=== PATIENT | female | born 1980 | race Caucasian/White ===

== ENCOUNTER 2021-05-12 07:39 | Inpatient (IN) | payer OTHER ==
[~2021-05-12] VITALS: Ht 162.6 cm; Wt 74.0 kg
[~2021-05-12 07:39] MED LIST: Bactrim Ds Tab1 EACH PO; CEPH500 PO; HIBICLENS120 ML EXT; HYDACE5 PO; IBUP600 PO; Keflex500 MG PO; MUPI2TC TOP; OMEP20ER PO; OXYACE5T PO; PENVK250 PO; PENVK500 PO; PROM25 PO; PROZAC; RXHYDACE PO; TRAM50 PO; ZYPREXA
[2021-05-12 08:25] LABS: BASOPHILS ABSOLUTE AUTO 0.05 K/mm3 (0.00-0.23); BASOPHILS PERCENT AUTO 0 % (0-2); EOSINOPHILS ABSOLUTE AUTO 0.04 K/mm3 (0.00-0.68); EOSINOPHILS PERCENT AUTO 0 % (0-6); Hematocrit 49.7 % (33.0-51.0); Hemoglobin 16.3 g/dL (11.5-16.0); IMMATURE GRAN ABSOLUTE AUTO 0.08 K/mm3 (0.00-0.10); IMMATURE GRAN PERCENT AUTO 0 % (0-1); LYMPHOCYTES ABSOLUTE AUTO 1.88 K/mm3 (0.84-5.20); LYMPHOCYTES PERCENT AUTO 9 % (21-46); MONOCYTES ABSOLUTE AUTO 1.95 K/mm3 (0.16-1.47); MONOCYTES PERCENT AUTO 10 % (4-13); Mean Corpuscular HGB Conc 32.8 g/dL (31.5-36.5); Mean Corpuscular Volume 91 fL (80-100); Mean Platelet Volume 9.5 fL (9.1-12.4); NEUTROPHILS ABSOLUTE AUTO 16.63 K/mm3 (1.96-9.15); NEUTROPHILS PERCENT AUTO 81 % (41-73); Platelet Count 354 K/mm3 (150-400); RDW Coefficient Variation 13.1 % (11.7-14.2); RDW Standard Deviation 43.8 fL (35.1-46.3); Red Blood Cell Count 5.44 M/mm3 (3.80-5.20); White Blood Cell Count 20.63 K/mm3 (4.00-11.30)
[2021-05-12 08:42] LABS: Alanine Aminotransfer (ALT/SGP 258 U/L (12-78); Albumin, Blood 4.3 g/dL (3.4-5.0); Albumin/Globulin Ratio 0.9 (0.8-1.8); Alk Phos 190 U/L (50-136); Anion Gap 6 mmol/L (6-16); Aspartate Aminotrans (AST/SGOT 51 U/L (12-37); Bilirubin, Total 0.7 mg/dL (0.1-1.0); Blood Urea Nitrogen 19 mg/dL (8-24); Bun/Creatinine Ratio 22.5 (12.0-20.0); CO2, Blood 30 mmol/L (21-32); Calcium, Blood 9.9 mg/dL (8.5-10.1); Chloride, Blood 99 mmol/L (98-108); Creatinine, Blood 0.84 mg/dL (0.40-1.00); Glomerular Filtration Rate >60 (60-); Glucose, Blood 138 mg/dL (70-99); Potassium, Blood 4.3 mmol/L (3.5-5.5); Sodium, Blood 135 mmol/L (136-145); Total Protein, Blood 9.3 g/dL (6.4-8.2)
[2021-05-12 10:02] LABS: Source, Urine Clean Catch
[2021-05-12 10:07] LABS: Appearance, Urine Clear (Clear); Bilirubin, Urine Neg (Neg); Blood, Urine 3+ (Neg); Color, Urine Yellow (P-Yellow); Glucose Qualitative, Urine Neg (Neg); Ketones, Urine 3+ (Neg); Leukocyte Esterase, Urine 1+ (Neg); Nitrite, Urine Neg (Neg); Protein, Urine 2+ (Neg); Urobilinogen, Urine NORM (Normal)
[2021-05-12 10:12] LABS: Influenza A, PCR NEGATIVE (NEGATIVE); Influenza B, PCR NEGATIVE (NEGATIVE); Resp Syncytial Virus, PCR NEGATIVE (NEGATIVE); SARS-Cov-2 (COVID-19) PCR, MMC NEGATIVE (NEGATIVE)
[2021-05-12 10:32] LABS: U Amphetamine Screen DETECTED; U Barbituate Screen Not Detected; U Benzodiazapine Screen Not Detected; U Buprenorphine Screen Not Detected; U Cannabinoids Screen Not Detected; U Cocaine Screen Not Detected; U Methadone Screen Not Detected; U Methamphetamine Screen DETECTED; U Opiates Screen Not Detected; U Oxycodone Screen Not Detected; U Phencyclidine Screen Not Detected; U Propoxyphene Screen Not Detected
[2021-05-12 10:57] LABS: Amorphous Heavy (0-Heavy); Bacteria Mod /hpf; Squamous Epithelial Cells Few /hpf (Few)
[2021-05-12 10:58] LABS: Hyaline Casts 0-2 /lpf (0-2)
[2021-05-12 11:12] LABS: Mucus Light (0-Heavy)
--- NOTE | 2021-05-12 18:05 | NUR ---
SHIFT SUMMARY PT IS SLEEPING IN BED. SINCE SHE ARRIVED ON THE FLOORS SHE HAS NOT HAD ANY VOMITING AND ONLY SOME NAUSEA, SHE HAS HELD DOWN CLEAR LIQUIDS FOR THE LAST [address] PATTON VISITED THE PT AND EXPLAINED THE LAP CHOLY TO HER AND SAID THE SURGERY WOULD MOST LIKELY BE TOMORROW MORNING AND THAT SHE COULD DISCHARGE HOME LATER THAT DAY. SHE WAS AGREEABLE TO THAT. SHE DENIES PAIN AND IS COMFORTABLE. PT WILL BE NPO AFTER MIDNIGHT. WILL CONTINUE TO MONITOR.
[2021-05-13 04:27] LABS: BASOPHILS ABSOLUTE AUTO 0.04 K/mm3 (0.00-0.23); BASOPHILS PERCENT AUTO 0 % (0-2); EOSINOPHILS PERCENT AUTO 2 % (0-6); Hematocrit 43.2 % (33.0-51.0); Hemoglobin 14.7 g/dL (11.5-16.0); IMMATURE GRAN ABSOLUTE AUTO 0.05 K/mm3 (0.00-0.10); IMMATURE GRAN PERCENT AUTO 0 % (0-1); LYMPHOCYTES ABSOLUTE AUTO 2.76 K/mm3 (0.84-5.20); LYMPHOCYTES PERCENT AUTO 20 % (21-46); MONOCYTES ABSOLUTE AUTO 1.33 K/mm3 (0.16-1.47); MONOCYTES PERCENT AUTO 10 % (4-13); Mean Corpuscular HGB 31.1 pg (26.0-34.0); Mean Corpuscular Volume 92 fL (80-100); Mean Platelet Volume 9.7 fL (9.1-12.4); NEUTROPHILS ABSOLUTE AUTO 9.11 K/mm3 (1.96-9.15); NEUTROPHILS PERCENT AUTO 67 % (41-73); Platelet Count 247 K/mm3 (150-400); RDW Coefficient Variation 12.7 % (11.7-14.2); RDW Standard Deviation 43.1 fL (35.1-46.3); Red Blood Cell Count 4.72 M/mm3 (3.80-5.20); White Blood Cell Count 13.59 K/mm3 (4.00-11.30)
[2021-05-13 05:28] LABS: Alanine Aminotransfer (ALT/SGP 158 U/L (12-78); Albumin, Blood 3.2 g/dL (3.4-5.0); Alk Phos 126 U/L (50-136); Anion Gap 6 mmol/L (6-16); Aspartate Aminotrans (AST/SGOT 33 U/L (12-37); Bilirubin, Total 0.7 mg/dL (0.1-1.0); Blood Urea Nitrogen 8 mg/dL (8-24); Bun/Creatinine Ratio 12.6 (12.0-20.0); CO2, Blood 26 mmol/L (21-32); Calcium, Blood 8.6 mg/dL (8.5-10.1); Chloride, Blood 105 mmol/L (98-108); Creatinine, Blood 0.63 mg/dL (0.40-1.00); Glomerular Filtration Rate >60 (60-); Glucose, Blood 108 mg/dL (70-99); Sodium, Blood 137 mmol/L (136-145)
[2021-05-13 05:30] LABS: Albumin/Globulin Ratio 0.8 (0.8-1.8); Globulin, Blood 3.8 g/dL (2.2-4.0)
--- NOTE | 2021-05-13 06:20 | NUR ---
SHIFT SUMMARY: PATIENT REPORTED NAUSEA X1, ZOFRAN WAS GIVEN WITH GOOD EFFECT. IVF INFUSING PER MD ORDER. PATIENT HAS BEEN NPO SINCE [place]. NO REPORTS OF PAIN. LOW GRADE TEMP. IS PERSISTANT.
--- NOTE | 2021-05-13 10:14 | NUR ---
THE PATIENT WAS BROUGHT TO DAY SURGERY FOR HER PROCEDURE.
--- NOTE | 2021-05-13 16:26 | NUR ---
SHIFT SUMMARY A/OX4, IND TO BATHROOM. PT RETURNED FROM OR APPROX 1520. DENIES PAIN OR NAUSEA. TY DRAIN TO THE RUQ PATENT WITH SANGINOUS OUTPUT. PLAN IS TO TRANSFER PT TO [facility] FOR ERCP WHEN A BED IS AVAILABLE. VSS, BED IN LOWEST POSITION WITH CALL LIGHT IN REACH. WILL CONTINUE TO MONITOR AND REPORT TO ONCOMING RN.
--- NOTE | 2021-05-14 07:24 | NUR ---
SHIFT SUMMARY: PATIENT HAS GOOD PAIN CONTROL WITH PO OXYCODONE X2, ZOFRAN WAS GIVEN WITH OXYCODONE TO PREVENT NAUSEA. PATIENT REPORTED THIS SIDE EFFECT FROM NARCOTICS. IV DILAUDID WAS GIVEN X1 FOR BREAK THROUGH PAIN AFTER AMBULATION, WITH GOOD EFFECT. LOW GRADE TEMPS. OBSERVED. IS WAS GIVEN AND AMB. ENCOURAGED. HYPOACTIVE BS, NO FLATUS THIS SHIFT. TY PUT OUT 30 MLS OF SEROSANGIUNES DRAINAGE. TOLERATING CLEAR LIQUID DIET. LR IS INFUSING AT 50 ML/HR.
[2021-05-14 08:41] LABS: Alanine Aminotransfer (ALT/SGP 126 U/L (12-78); Albumin, Blood 2.7 g/dL (3.4-5.0); Albumin/Globulin Ratio 0.7 (0.8-1.8); Alk Phos 96 U/L (50-136); Anion Gap 4 mmol/L (6-16); Aspartate Aminotrans (AST/SGOT 38 U/L (12-37); Bilirubin, Total 0.4 mg/dL (0.1-1.0); Blood Urea Nitrogen 7 mg/dL (8-24); CO2, Blood 27 mmol/L (21-32); Calcium, Blood 8.6 mg/dL (8.5-10.1); Chloride, Blood 107 mmol/L (98-108); Creatinine, Blood 0.63 mg/dL (0.40-1.00); Globulin, Blood 3.7 g/dL (2.2-4.0); Glomerular Filtration Rate >60 (60-); Glucose, Blood 97 mg/dL (70-99); Glutamyl Transpeptidase, GGT 151 U/L (5-55); Sodium, Blood 138 mmol/L (136-145); Total Protein, Blood 6.4 g/dL (6.4-8.2)
--- NOTE | 2021-05-14 17:35 | NUR ---
PATIENT AWAITING COBRA TRANSFER TO [facility] IN [facility]. VSS THIS SHIFT, PATIENT ON RA. 3 LAP SITES TO ABDOMEN WITH DERMABOND CLOSURE WNL, TY DRAIN TO RUQ DRAINING MODERATE AMOUNT OF SEROSANGUINOUS DRAINAGE. NAUSEA HAS IMPROVED AND PATIENT TOLRATING REGULAR DIET. MEDICATIING FOR PAIN PER EMAR. PATIENT UPSET ABOUT BEING HERE AND TEARFUL AT TIMES. BT ACTIVE X4 QUADRANTS AND PATIENT IS PASSING GAS. UP AMBULATING IN HALLS INDEPENDENTLY.
--- NOTE | 2021-05-15 06:13 | NUR ---
SHIFT SUMMARY A/OX4, IND IN ROOM. C/O MILD ABD PAIN WITH MOVEMENT, MEDICATED PER EMAR X2. TY DRAINED 40ML SEROSANGINOUS OUTPUT THIS SHIFT. VSS, NO ACUTE CHANGES AT THIS TIME. AWAITING PLACEMENT AT [facility] FOR ERCP. BED IN LOWEST POSITION WITH CALL LIGHT IN REACH. WILL CONTINUE TO MONITOR AND REPORT TO ONCOMING RN.
[2021-05-15 06:24] LABS: BASOPHILS ABSOLUTE AUTO 0.05 K/mm3 (0.00-0.23); BASOPHILS PERCENT AUTO 1 % (0-2); EOSINOPHILS ABSOLUTE AUTO 0.35 K/mm3 (0.00-0.68); EOSINOPHILS PERCENT AUTO 3 % (0-6); Hematocrit 37.2 % (33.0-51.0); Hemoglobin 12.2 g/dL (11.5-16.0); IMMATURE GRAN ABSOLUTE AUTO 0.05 K/mm3 (0.00-0.10); IMMATURE GRAN PERCENT AUTO 1 % (0-1); LYMPHOCYTES ABSOLUTE AUTO 3.59 K/mm3 (0.84-5.20); LYMPHOCYTES PERCENT AUTO 34 % (21-46); MONOCYTES ABSOLUTE AUTO 1.13 K/mm3 (0.16-1.47); MONOCYTES PERCENT AUTO 11 % (4-13); Mean Corpuscular HGB 30.7 pg (26.0-34.0); Mean Corpuscular HGB Conc 32.8 g/dL (31.5-36.5); Mean Corpuscular Volume 94 fL (80-100); Mean Platelet Volume 10.5 fL (9.1-12.4); NEUTROPHILS ABSOLUTE AUTO 5.55 K/mm3 (1.96-9.15); NEUTROPHILS PERCENT AUTO 52 % (41-73); Platelet Count 235 K/mm3 (150-400); RDW Coefficient Variation 12.6 % (11.7-14.2); RDW Standard Deviation 43.7 fL (35.1-46.3); Red Blood Cell Count 3.97 M/mm3 (3.80-5.20); White Blood Cell Count 10.72 K/mm3 (4.00-11.30)
[2021-05-15 06:46] LABS: Alanine Aminotransfer (ALT/SGP 99 U/L (12-78); Albumin, Blood 2.7 g/dL (3.4-5.0); Albumin/Globulin Ratio 0.7 (0.8-1.8); Alk Phos 90 U/L (50-136); Anion Gap 5 mmol/L (6-16); Aspartate Aminotrans (AST/SGOT 25 U/L (12-37); Bilirubin, Total 0.3 mg/dL (0.1-1.0); Blood Urea Nitrogen 8 mg/dL (8-24); Bun/Creatinine Ratio 12.4 (12.0-20.0); CO2, Blood 29 mmol/L (21-32); Calcium, Blood 8.1 mg/dL (8.5-10.1); Chloride, Blood 107 mmol/L (98-108); Creatinine, Blood 0.65 mg/dL (0.40-1.00); Globulin, Blood 3.7 g/dL (2.2-4.0); Glomerular Filtration Rate >60 (60-); Glucose, Blood 90 mg/dL (70-99); Potassium, Blood 3.5 mmol/L (3.5-5.5); Sodium, Blood 141 mmol/L (136-145); Total Protein, Blood 6.4 g/dL (6.4-8.2)
--- NOTE | 2021-05-15 15:45 | NUR ---
Patient is sitting up in bed and alert. Pt tells me about her medical issues and the plan to transport her to another hospital. Pt vioces her frustration of felling like she has fallen into a vortex and that nothing is happening. She realizes that many things may be happening behind the scenes she just feels stuck. We talk about her solid family support and about the financial strain this will this medical event and recovery will have on her and her family. I reinforce helpful attitudes and provide therapeutic listening and a calming presence.
--- NOTE | 2021-05-15 17:11 | NUR ---
PATIENT CONTINUES TO AWAIT TRANSFER FOR ERCP. ON WAITING LIST FOR BOTH [facility] AND [facility] IN [place]. PAIN BETTER CONTROLLED THIS SHIFT, TAKING OXYCODONE TO TREAT. 3 LAP SITES TO ABDOMEN AND WELL APPROXIMATED AND OPENT TO AIR. TY DRAIN TO RUQ WITH SEROSANGUINOUS OUTPUT. PATIENT TOLERATING REGULAR DIET. UP INDEPENDENTLY IN ROOM. 20G IV TO R AC WNL AND SL. COOPERATIVE WITH CARE AND CALLS APPROPRIATELY FOR ASSISTANCE.
--- NOTE | 2021-05-15 21:02 | NUR ---
REPORT GIVEN TO MARQUITA HUYNH AT [facility]. ROOM ASSIGNMENT 3394. MEDICATED WITH OXYCODONE 10 MG FOR PAIN MANAGEMENT.
--- NOTE | 2021-05-15 21:08 | NUR ---
EMT TRANSFER PATIENT TO THEIR [facility] FOR TRANSFER TO [facility] ROOM 2171
== END 2021-05-15 21:10 | disposition short-term general hospital (02) | DRG 417 ==
LOC: ER 07:39 → SURS 07:40 → MEDS 07:40 → ER 07:40 → MEDS 07:40 → ER 07:41 → MEDS 07:41 → SURS 11:52 → MEDS 11:53
PROVIDERS: Emergency Medicine; Surgery; ADMIT Surgery
PROC: BF151ZZ Fluoroscopy of Liver using Low Osmolar Contrast (ICD-10-PCS; 2021-05-13)
PROC: BF131ZZ Fluoroscopy of Gallbladder and Bile Ducts using Low Osmolar Contrast (ICD-10-PCS; 2021-05-13)
PROC: 0FT44ZZ Resection of Gallbladder, Percutaneous Endoscopic Approach (ICD-10-PCS; principal; 2021-05-13 09:45)
DX: K80.42 Calculus of bile duct with acute cholecystitis without obstruction (principal); K85.10 Biliary acute pancreatitis without necrosis or infection; F31.9 Bipolar disorder, unspecified; K02.9 Dental caries, unspecified; F41.9 Anxiety disorder, unspecified; F17.210 Nicotine dependence, cigarettes, uncomplicated; Z20.822 Contact with and (suspected) exposure to COVID-19; F15.10 Other stimulant abuse, uncomplicated; E86.0 Dehydration; Z98.51 Tubal ligation status
CPT/HCPCS: 0241U; 36415; 74181; 74300; 76705; 80053; 81001; 82977; 83690; 85025; 87086; 96365; 96366; 96374; 96375; 96376; 99285-25; A9270; C1729; C9113; G0378; J0295; J0330; J1100; J1170; J1644; J2270; J2310; J2405; J2704; J2765; J3010; J7030; J7050; J7120